=== PATIENT | female | born 1970 | race Caucasian/White ===

== ENCOUNTER → 2016-07-29 | Outpatient (CLI) | payer OTHER ==
[~2016-07-29] MED LIST: 'PARAFON FORTE500 M1 PO; EFFEXOR XR150 M1 PO; ESTRACE1 M1 PO; FLEXERIL5 MG PO; HYDROCODONE BIT1 T11 PO; MOTRIN800 MG PO; Motrin,Rufen800 MG PO; NAPROSYN500 MG PO; OMNICEF300 MG PO; PERCOCET 325 MG1 TA2 PO; SYNTHROID0.075 MG PO; Synthroid,Lev100 MCG PO; TRAMADOL HCL50 MG PO; VITAMIN D50000 I3 PO; ZOFRAN ODT4 MG SL
== END | disposition home or self-care (01) ==
LOC: RAD 15:34
DX: M16.12 Unilateral primary osteoarthritis, left hip (principal); M25.552 Pain in left hip; M54.5 Low back pain; G95.89 Other specified diseases of spinal cord

== ENCOUNTER → 2017-01-18 | Outpatient (CLI) | payer OTHER | END | disposition home or self-care (01) | LOC: ORTHO 03:45 | DX: M17.11 Unilateral primary osteoarthritis, right knee (principal); M25.461 Effusion, right knee; M25.761 Osteophyte, right knee ==

== ENCOUNTER 2017-02-08 11:57 | Emergency (ER) | payer OTHER ==
[~2017-02-08] VITALS: Wt 103.4 kg
[2017-02-08 12:09] VITALS: BP 124/66
[2017-02-08] MEDS ORDERED: MOBIC7.5 MG PO (12:10)
[2017-02-08] MEDS ORDERED: HYDROCODONE BIT1 T11 PO (13:52)
[2017-02-08] MEDS ORDERED: LIDODERM 5% PATC1 EA PO (13:52)
[2017-02-08] MEDS ORDERED: NAPROSYN500 MG PO (13:52)
== END 2017-02-08 13:55 | disposition home or self-care (01) ==
LOC: ED 11:57
DX: M54.32 Sciatica, left side (principal); F17.200 Nicotine dependence, unspecified, uncomplicated

== ENCOUNTER → 2018-06-28 | Outpatient (CLI) | payer OTHER ==
[~2018-06-28] MED LIST changes: +LIDODERM 5% PATC1 EA PO; +MOBIC7.5 MG PO
== END | disposition home or self-care (01) ==
LOC: US 16:45
DX: N93.9 Abnormal uterine and vaginal bleeding, unspecified (principal)